=== PATIENT | female | born 1980 | race Caucasian/White ===

== ENCOUNTER 2016-05-31 16:23 | Emergency (ER) | payer OTHER ==
[~2016-05-31] VITALS: Ht 162.6 cm; Wt 64.9 kg
[~2016-05-31 16:23] MED LIST: BIOT1TAB5 PO; CRAN450T3 PO; GLC/500 PO; ZTHM250 PO
[2016-05-31 16:28] VITALS: TEMP 36.4; Ht 162.6 cm; Wt 64.9 kg
[2016-05-31] MEDS ORDERED: SODIUM CHLORIDE 0.9% 1000ML 1,000 ML IV STA (16:45)
[2016-05-31] MEDS ORDERED: ALBUT/IPRATROP 3MG/0.5MG NEB 3 ML VIAL INH STA (16:45)
[2016-05-31] MEDS ORDERED: CHLO1TAB47 PO (17:05)
[2016-05-31] MEDS ORDERED: ASPI325T45 PO (17:05)
[2016-05-31] MEDS ORDERED: FERR325T PO (17:05)
[2016-05-31 17:11] LABS: BASO % 0.9 %; BASO ABS # 0.03 K/uL (0-0.2); EOS % 2.8 %; HEMATOCRIT 32.5 % (37-47); LYMPH % 38.1 %; LYMPH ABS # 1.23 K/uL (1.2-3.4); MEAN CELL VOLUME 65.5 fL (80-100); MEAN CORPUSCULAR HEMOGLOBIN 19.4 pg (25-34); MEAN CORPUSCULAR HGB CONC 29.5 g/dl (32-36); MEAN PLATELET VOLUME 9.3 fL (7.4-10.4); MONO % 9.9 %; NEUT % 48.3 %; PLATELET COUNT 217 K/uL (130-400); RED BLOOD COUNT 4.96 M/uL (4.2-5.4); WHITE BLOOD COUNT 3.23 K/uL (4.8-10.8)
--- NOTE | 2016-05-31 17:30 | DIAGNOSTIC IMAGING REPORT ---
CHEST 2 VIEWS ROUTINE CLINICAL HISTORY: Fever, cough COMPARISON STUDY: 12/30/2015 FINDINGS: The cardiac and mediastinal contours are normal. There is no evidence of focal pulmonary consolidation. There is no evidence of failure. No pleural effusions are visualized.[ IMPRESSION: No active disease in the chest. Electronically signed by: Kyler Basurto M.D. 05/31/2016 5:29 PM Dictated Date/Time: 05/31/2016 5:28 PM
[2016-05-31 17:33] LABS: BUN/CREATININE RATIO 13.8 (10-20); CALCIUM 8.1 mg/dl (8.5-10.1); CREATININE 0.64 mg/dl (0.60-1.20); POTASSIUM 3.4 mmol/L (3.5-5.1)
[2016-05-31 17:43] LABS: ALB/GLOB RATIO 0.8 (0.9-2); THYROID STIMULATING HORMONE 1.72 uIu/ml (0.300-4.500)
[2016-05-31 18:27] LABS: ANISOCYTOSIS PRESENT; COMPLETE YES; LARGE PLATELETS 1+; MICROCYTOSIS PRESENT
[2016-05-31] MEDS ORDERED: ALBUTEROL HFA 8 GM INHALER INH ONE (18:30)
--- NOTE | 2016-05-31 18:37 | EMERGENCY ROOM VISIT NOTE ---
History First contact with patient: 16:32 Chief Complaint: FLU LIKE SX Stated Complaint: FEVER,COUGH History of Present Illness The patient is a 36 year old female who presents to the Emergency Room with complaints of flulike symptoms which began 5 days ago. The patient states that she was seen here 5 days ago with her sons, who were both diagnosed with influenza. She states that later that day, she developed fevers, coughing and body aches. She has had constant symptoms since then. She states that she has allergies to Tylenol and ibuprofen, but has been taking Regina-[place] cold and flu for her symptoms. She states that her fevers have been as high as 102F. She has had associated chills. She has a history of diabetes, Graves' disease and anemia. She denies any associated nausea, vomiting, abdominal pain, neck pain/stiffness, headache, earaches or sore throat. Review of Systems A complete 10-point Review of Systems was discussed with the patient, with pertinent positives and negatives listed in the History of Present Illness. All remaining Review of Systems questions can be considered negative unless otherwise specified. Past Medical/Surgical History Medical Problems: (1) Acute asthma exacerbation (2) Acute bronchitis (3) Acute bronchitis (4) Acute pharyngitis (5) Asthma (6) Borderline Diabetes (7) Bronchitis (8) Dental decay (9) Dentalgia (10) Diab W Oth Spec Manifest, Type Ii Or Unspec Type, Not Uncntr (11) Diabetes mellitus, new onset (12) Hyperglycemia (13) Hyperglycemia (14) Hypertension (15) Medication requested (16) Pharyngitis (17) Pharyngitis (18) Streptococcal tonsillitis (19) Streptococcal tonsillitis (20) Vaginal discharge Surgical Problems: (1) section (2) Tubal Ligation Status Family History Cancer Diabetes mellitus Gallbladder disease Heart disease Hypertension Kidney disease Kidney stones Lung disease Seizures Stroke Social History Smoking Status: Current Every Day Smoker Alcohol Use: occasionally Marital Status: single Housing Status: lives alone Occupation Status: employed Current/Historical Medications Scheduled Ferrous Sulfate (Ferrous Sulfate), 325 MG PO BID Metformin Hcl (Glucophage), 1,000 MG PO BID Scheduled PRN Aspirin (Aspirin), 325 MG PO UD PRN for Pain or Fever Chlorpheniramine-Phenylephrine (Reg[place] Plus Cold), 1 TAB PO UD PRN for Cold Symptoms Allergies Coded Allergies: Acetaminophen (Verified Allergy, Unknown, RASH, 12/30/15) Ibuprofen (Verified Allergy, Unknown, REDNESS, 12/30/15) Morphine (Verified Allergy, Unknown, HIVES, 12/30/15) Naproxen (Unverified Allergy, Unknown, HIVES, 12/30/15) Penicillins (Verified Allergy, Unknown, 12/30/15) Physical Exam Vital Signs Date Time Temp Pulse Resp B/P Pulse Ox O2 Delivery O2 Flow Rate FiO2 05/31/16 18:50 80 18 110/74 98 05/31/16 16:28 36.4 98 100 150/100 20 Room Air Physical Exam VITALS: Vitals are noted on the nurse's note and reviewed by myself. Vital signs stable. GENERAL: This is a 36-year-old female, in no acute distress, nondiaphoretic, well-developed well-nourished. SKIN: Capillary reflex less than 2 seconds. HEENT: Normocephalic. PERRLA. EOMI. Nares patent. Mucous membranes moist. Neck is supple without nuchal rigidity. HEART: Regular rate and rhythm without murmurs gallops or rubs. LUNGS: Clear to auscultation bilaterally without wheezes, rales or rhonchi. No retractions or accessory muscle use. ABDOMEN: Positive bowel sounds x 4. Soft, nontender to palpation. NEURO: Patient was alert and oriented to person place and time. Medical Decision & Procedures ER Provider Diagnostic Interpretation: CHEST 2 VIEWS ROUTINE FINDINGS: The cardiac and mediastinal contours are normal. There is no evidence of focal pulmonary consolidation. There is no evidence of failure. No pleural effusions are visualized.[ IMPRESSION: No active disease in the chest. Laboratory Results 05/31/16 16:55 Red Blood Count 4.96, Mean Corpuscular Volume 65.5, Mean Corpuscular Hemoglobin 19.4, Mean Corpuscular Hemoglobin Concent 29.5, Mean Platelet Volume 9.3, Neutrophils (%) (Auto) 48.3, Lymphocytes (%) (Auto) 38.1, Monocytes (%) (Auto) 9.9, Eosinophils (%) (Auto) 2.8, Basophils (%) (Auto) 0.9, Neutrophils # (Auto) 1.56, Lymphocytes # (Auto) 1.23, Monocytes # (Auto) 0.32, Eosinophils # (Auto) 0.09, Basophils # (Auto) 0.03 05/31/16 16:55 Test 05/31/16 16:55 White Blood Count 3.23 K/uL (4.8-10.8) Red Blood Count 4.96 M/uL (4.2-5.4) Hemoglobin 9.6 g/dL (12.0-16.0) Hematocrit 32.5 % (37-47) Mean Corpuscular Volume 65.5 fL (80-100) Mean Corpuscular Hemoglobin 19.4 pg (25-34) Mean Corpuscular Hemoglobin Concent 29.5 g/dl (32-36) Platelet Count 217 K/uL (130-400) Mean Platelet Volume 9.3 fL (7.4-10.4) Neutrophils (%) (Auto) 48.3 % Lymphocytes (%) (Auto) 38.1 % Monocytes (%) (Auto) 9.9 % Eosinophils (%) (Auto) 2.8 % Basophils (%) (Auto) 0.9 % Neutrophils # (Auto) 1.56 K/uL (1.4-6.5) Lymphocytes # (Auto) 1.23 K/uL (1.2-3.4) Monocytes # (Auto) 0.32 K/uL (0.11-0.59) Eosinophils # (Auto) 0.09 K/uL (0-0.5) Basophils # (Auto) 0.03 K/uL (0-0.2) RDW Standard Deviation 44.9 fL (36.4-46.3) RDW Coefficient of Variation 19.1 % (11.5-14.5) Immature Granulocyte % (Auto) 0.0 % Immature Granulocyte # (Auto) 0.00 K/uL (0.00-0.02) Large Platelets 1+ Anisocytosis PRESENT Microcytosis PRESENT Anion Gap 9.0 mmol/L (3-11) Est Creatinine Clear Calc Drug Dose 106.0 ml/min Estimated GFR () 134.0 Estimated GFR (Non- 115.6 BUN/Creatinine Ratio 13.8 (10-20) Calcium Level 8.1 mg/dl (8.5-10.1) Total Bilirubin 0.2 mg/dl (0.2-1) Aspartate Amino Transf (AST/SGOT) 9 U/L (15-37) Alanine Aminotransferase (ALT/SGPT) 14 U/L (12-78) Alkaline Phosphatase 66 U/L (45-117) Total Protein 7.5 gm/dl (6.4-8.2) Albumin 3.4 gm/dl (3.4-5.0) Globulin 4.1 gm/dl (2.5-4.0) Albumin/Globulin Ratio 0.8 (0.9-2) Thyroid Stimulating Hormone (TSH) 1.720 uIu/ml (0.300-4.500) Free Thyroxine 0.79 ng/dl (0.80-1.60) Free Triiodothyronine 2.41 pg/ml (2.30-4.20) Influenza Type A Antigen Neg for Influ A (NEG) Influenza Type B Antigen POS for Influ B (NEG) Medications Administered Medications (Trade) Dose Ordered Sig/Phil Route Start Time Stop Time Status Last Admin Dose Admin Sodium Chloride (Nss 1000ml) 1,000 ml @ 999 mls/hr Q1H1M STAT IV 05/31/16 16:45 05/31/16 17:45 DC 05/31/16 17:09 999 MLS/HR Albuterol/ Ipratropium (Duoneb) 3 ml NOW STAT INH 05/31/16 16:45 05/31/16 16:48 DC 05/31/16 17:09 3 ML Albuterol (Ventolin Hfa Inhaler) 2 puffs NOW ONCE INH 05/31/16 18:30 05/31/16 18:31 DC 05/31/16 18:45 2 PUFFS Medical Decision Differential diagnosis includes influenza, pneumonia, viral syndrome, among others. The patient was evaluated as above. Labs were drawn and IV access was obtained. Imaging studies were performed and read by radiology as above. The patient was medicated with 1 L normal saline solution and a DuoNeb treatment. The patient was reassessed multiple times during their stay in the emergency department and remained in stable condition. The patient is a 36-year-old female who presents today complaining of flulike symptoms. Labs revealed a positive influenza B. Patient was slightly hypocalcemic and she was informed of this. Patient is moderately anemic, but this appears to be baseline for her. TSH and thyroid studies were normal. Chest x-ray was performed and read by radiology with no acute infiltrates. The patient is not a candidate for Tamiflu. Conservative measures were discussed with the patient. Based on the patient's presentation, lab results, and imaging studies, I feel the patient is stable for outpatient treatment. Discharge instructions were reviewed with the patient. The patient verbalized understanding of my assessment and treatment plan and was discharged home in good condition. Impression Primary Impression: Influenza B Departure Information Dispostion Home / Self-Care Condition GOOD Referrals Gillian Maya M.D. (MEDICAL) (PCP) Patient Instructions My [facility] Additional Instructions You had a positive influenza test today. Your calcium was slightly low. You should increase calcium-containing foods and have this rechecked by your primary care provider. Rest and drink plenty of fluids. Return to the emergency department with any new/concerning symptoms.
[2016-05-31 18:50] VITALS: BP 110/74; PULSE 80; O2SAT 98
== END 2016-05-31 18:52 | disposition home or self-care (01) ==
LOC: C.EDB 16:23 → C.EDC 18:52
DX: J10.1 Influenza due to other identified influenza virus with other respiratory manifestations (principal); E11.9 Type 2 diabetes mellitus without complications; E05.00 Thyrotoxicosis with diffuse goiter without thyrotoxic crisis or storm; J45.909 Unspecified asthma, uncomplicated; I10 Essential (primary) hypertension; Z83.3 Family history of diabetes mellitus; Z80.9 Family history of malignant neoplasm, unspecified; Z82.49 Family history of ischemic heart disease and other diseases of the circulatory system; Z84.1 Family history of disorders of kidney and ureter; Z83.6 Family history of other diseases of the respiratory system; F17.210 Nicotine dependence, cigarettes, uncomplicated; Z79.899 Other long term (current) drug therapy

== ENCOUNTER 2017-05-03 04:32 | Emergency (ER) | payer OTHER ==
[~2017-05-03] VITALS: Ht 162.6 cm; Wt 69.5 kg
[~2017-05-03 04:32] MED LIST changes: +ASPI325T45 PO; -BIOT1TAB5 PO; +CHLO1TAB50 PO; -CRAN450T3 PO; +FERR1TAB62 PO; -ZTHM250 PO
[2017-05-03 04:35] VITALS: TEMP 36.7; Ht 162.6 cm; Wt 69.5 kg
[2017-05-03] MEDS ORDERED: DEXAMETHASONE SOD INJ 4 MG/ML 5 ML VIAL IM STA (04:54)
[2017-05-03] MEDS ORDERED: METH4PAK PO (04:59)
[2017-05-03] MEDS ORDERED: DOXY100C PO (04:59)
--- NOTE | 2017-05-03 05:00 | EMERGENCY ROOM VISIT NOTE ---
History First contact with patient: 04:40 Chief Complaint: SINUS CONGESTION/PRESSURE Stated Complaint: SINUS MACHADO,FEVER Nursing Triage Summary: c/o sinus machado and congestion for several days. states she is allergic to tylenol and motrin. History of Present Illness The patient is a 36 year old female who presents to the Emergency Room with complaints of right-sided facial pain/headache. The patient states that she has had this pain for the past one week. The pain is located under her right eye and above her right eye. She believes that she has had a fever for the past few days because she feels warm, but she has not taken her temperature. She has been using an [id number] nasal spray and taking antihistamines without relief. She states she is allergic to almost all pain medications and therefore has not been taking anything for the pain. She has had a cough and mild congestion. She rates the discomfort a 7/10. She denies neck pain/ stiffness, abdominal pain, nausea or vomiting. Review of Systems A complete 10 point review of systems was reviewed with the patient with pertinent positives and negatives as per history of present illness. All else were negative. Past Medical/Surgical History Medical Problems: (1) Acute asthma exacerbation (2) Acute bronchitis (3) Acute bronchitis (4) Acute pharyngitis (5) Asthma (6) Borderline Diabetes (7) Bronchitis (8) Dental decay (9) Dentalgia (10) Diab W Oth Spec Manifest, Type Ii Or Unspec Type, Not Uncntr (11) Diabetes mellitus, new onset (12) Hyperglycemia (13) Hyperglycemia (14) Hypertension (15) Medication requested (16) Pharyngitis (17) Pharyngitis (18) Streptococcal tonsillitis (19) Streptococcal tonsillitis (20) Vaginal discharge Surgical Problems: (1) section (2) Tubal Ligation Status Family History Cancer Diabetes mellitus Gallbladder disease Heart disease Hypertension Kidney disease Kidney stones Lung disease Seizures Stroke Social History Smoking Status: Current Every Day Smoker Alcohol Use: occasionally Marital Status: single Housing Status: lives alone Occupation Status: employed Current/Historical Medications Scheduled Doxycycline Hyclate (Vibramycin), 100 MG PO BID Ferrous Sulfate (Ferrous Sulfate), 325 MG PO BID Metformin Hcl (Glucophage), 1,000 MG PO BID Methylprednisolone (Medrol Dosepak), 0 PO DAILY Scheduled PRN Aspirin (Aspirin), 325 MG PO UD PRN for Pain or Fever Chlorpheniramine-Phenylephrine (Regina-[place]up[place] Plus Cold), 1 TAB PO UD PRN for Cold Symptoms Physical Exam Vital Signs Date Time Temp Pulse Resp B/P (MAP) Pulse Ox O2 Delivery O2 Flow Rate FiO2 05/03/17 04:35 36.7 80 18 147/103 98 Room Air Physical Exam VITALS: Vitals are noted on the nurse's note and reviewed by myself. Vital signs stable. GENERAL: This is a 36-year-old female, in no acute distress, nondiaphoretic, well-developed well-nourished. SKIN: The skin was without rashes. HEAD: Normocephalic atraumatic. EARS: External auditory canals clear, tympanic membranes pearly escobedo without erythema or effusion bilaterally. EYES: Pupils equal round and reactive to light and accommodation. Extraocular movements intact. NOSE: Patent, turbinates without inflammation or discharge. Tenderness of the right maxillary and frontal sinuses. MOUTH: Mucous membranes moist. Tonsils are not enlarged. Pharynx without erythema or exudate. NECK: Supple without nuchal rigidity. No lymphadenopathy. No meningismus. HEART: Regular rate and rhythm without murmurs gallops or rubs. LUNGS: Clear to auscultation bilaterally without wheezes, rales or rhonchi. No retractions or accessory muscle use. NEURO: Patient was alert and oriented to person place and time. Medical Decision & Procedures Medical Decision Differential diagnosis includes sinusitis, migraine headaches, influenza, viral illness, meningitis, encephalitis, among others. The patient is a 36-year-old female who presents today complaining of right- sided facial pain. Patient states that she has had fevers at home, however she is afebrile on presentation and has not taken any antipyretics at home. Exam is consistent with acute sinusitis. There is no evidence of meningitis or encephalitis on exam. The patient has an allergy to penicillins, therefore she will be placed on doxycycline. She will also be prescribed a Medrol Dosepak. She was given an initial dose of Decadron IM in the emergency department. She will follow-up with her primary care provider. She was advised to return here as needed for any worsening or new/concerning symptoms. She verbalized understanding of my assessment and treatment plan and was discharged home in good condition. Medication Reconcilliation Current Medication List: was personally reviewed by me Blood Pressure Screening Patient's blood pressure: Elevated blood pressure Blood pressure disposition: Elevated BP felt to be situational Impression Primary Impression: Acute sinusitis Departure Information Dispostion Home / Self-Care Condition GOOD Prescriptions Methylprednisolone (MEDROL DOSEPAK) 4 Mg Eleazar 0 PO DAILY, #1 PKT Prov: Ramona Robins PA-C 05/03/17 Doxycycline Hyclate (VIBRAMYCIN) 100 Mg Cap 100 MG PO BID for 10 Days, #20 CAP Prov: Ramona Robins PA-C 05/03/17 Referrals No Doctor, Assigned (PCP) Patient Instructions My [facility] Additional Instructions You were prescribed doxycycline to be taken twice daily as prescribed. This is an antibiotic. All antibiotics have the potential to cause diarrhea. Stop this medication and contact a medical provider if you were to develop any significant adverse side effects including: wheezing, shortness of breath, passing out, vomiting, or a diffuse rash. Always take antibiotics as directed and COMPLETE the ENTIRE course regardless of the improvement of your symptoms. You have been prescribed a Medrol Dosepak. This is a steroid which will help decrease your inflammation, redness, and itch. Take the medicine as prescribed. Take the ENTIRE 6 day course of the steroids. You may use a Flonase nasal spray [id number]. You need to follow-up with your primary care provider within one week for a recheck. Return to the emergency department with any high fevers, pain/stiffness, worsening or new/concerning symptoms. Problem Qualifiers Primary Impression: Acute sinusitis Sinusitis location: unspecified location Recurrence: non-recurrent Qualified Codes: J01.90 - Acute sinusitis, unspecified
[2017-05-03] MEDS ORDERED: DEXAMETHASONE **PF** INJ 10 MG/ML VIAL ONE (05:14)
[2017-05-03] MEDS ORDERED: LEVO25TA5 PO (05:29)
[2017-05-03 05:35] VITALS: BP 145/78; PULSE 82; O2SAT 98
== END 2017-05-03 05:36 | disposition home or self-care (01) ==
LOC: C.EDB 04:33 → C.EDA 05:36
DX: J01.90 Acute sinusitis, unspecified (principal); E11.9 Type 2 diabetes mellitus without complications; I10 Essential (primary) hypertension; F17.200 Nicotine dependence, unspecified, uncomplicated; Z79.84 Long term (current) use of oral hypoglycemic drugs; Z80.9 Family history of malignant neoplasm, unspecified; Z83.3 Family history of diabetes mellitus; Z83.79 Family history of other diseases of the digestive system; Z82.49 Family history of ischemic heart disease and other diseases of the circulatory system; Z84.1 Family history of disorders of kidney and ureter; Z82.0 Family history of epilepsy and other diseases of the nervous system; Z82.3 Family history of stroke

== ENCOUNTER 2017-07-27 15:58 | Emergency (ER) | payer OTHER ==
[~2017-07-27] VITALS: Ht 165.1 cm; Wt 66.1 kg
[~2017-07-27 15:58] MED LIST changes: -ASPI325T45 PO; -CHLO1TAB50 PO; -FERR1TAB62 PO; +LEVO25TA5 PO
[2017-07-27 16:02] VITALS: TEMP 36.6; Ht 165.1 cm; Wt 66.1 kg
[2017-07-27] MEDS ORDERED: SODIUM CHLORIDE 0.9% 1000ML 1,000 ML IV STA (16:16)
[2017-07-27] MEDS ORDERED: ALBUT/IPRATROP 3MG/0.5MG NEB 3 ML VIAL INH STA (16:20)
[2017-07-27] MEDS ORDERED: PHEN95TA14 PO (16:35)
--- NOTE | 2017-07-27 16:39 | DIAGNOSTIC IMAGING REPORT ---
CHEST ONE VIEW PORTABLE HISTORY: Generalized abdominal pain. COMPARISON: Chest 05/31/2016. FINDINGS: The lungs are clear. Cardiac silhouette is normal in size. No pleural effusions. No pneumothorax. IMPRESSION: No acute process. Electronically signed by: Nehemiah Larose M.D. 07/27/2017 4:37 PM Dictated Date/Time: 07/27/2017 4:36 PM
[2017-07-27] MEDS ORDERED: CIPROFLOXACIN 500 MG TAB PO STA (16:51)
[2017-07-27 16:53] LABS: BASO % 1.5 %; BASO ABS # 0.09 K/uL (0-0.2); EOS % 2.4 %; EOS ABS # 0.14 K/uL (0-0.5); HEMATOCRIT 39.4 % (37-47); HEMOGLOBIN 12.7 g/dL (12.0-16.0); IG# 0.01 K/uL (0.00-0.02); LYMPH % 35.7 %; LYMPH ABS # 2.09 K/uL (1.2-3.4); MEAN CELL VOLUME 82.8 fL (80-100); MEAN CORPUSCULAR HEMOGLOBIN 26.7 pg (25-34); MEAN CORPUSCULAR HGB CONC 32.2 g/dl (32-36); MEAN PLATELET VOLUME 10.3 fL (7.4-10.4); MONO % 9.2 %; MONO ABS # 0.54 K/uL (0.11-0.59); NEUT ABS # 2.98 K/uL (1.4-6.5); PLATELET COUNT 309 K/uL (130-400); RED CELL DISTRIBUTION WIDTH CV 14.6 % (11.5-14.5); RED CELL DISTRIBUTION WIDTH SD 44.2 fL (36.4-46.3); WHITE BLOOD COUNT 5.85 K/uL (4.8-10.8)
[2017-07-27 17:13] LABS: ALBUMIN 3.9 gm/dl (3.4-5.0); ALT/SGPT 13 U/L (12-78); AST/SGOT 6 U/L (15-37); BLOOD UREA NITROGEN 9 mg/dl (7-18); CALCIUM 8.7 mg/dl (8.5-10.1); CARBON DIOXIDE 25 mmol/L (21-32); CREATININE 0.65 mg/dl (0.60-1.20); GLUCOSE 121 mg/dl (70-99); LIPASE 45 U/L (73-393); POTASSIUM 3.5 mmol/L (3.5-5.1); SODIUM 140 mmol/L (136-145)
[2017-07-27 17:16] LABS: ALKALINE PHOSPHATASE 67 U/L (45-117); TOTAL PROTEIN 7.9 gm/dl (6.4-8.2)
[2017-07-27] MEDS ORDERED: CIPR-255 PO (17:20)
[2017-07-27 17:40] VITALS: BP 141/90; PULSE 66; O2SAT 98
--- NOTE | 2017-07-27 19:26 | EMERGENCY ROOM VISIT NOTE ---
History Report prepared by Alexis: Laura Malone Under the Supervision of: Dr. Juan Alfaro M.D. First contact with patient: 16:05 Chief Complaint: URINARY SYMPTOMS Stated Complaint: URINARY,PAIN,UTI History of Present Illness The patient is a 37 year old female who presents to the Emergency Room with complaints of urinary symptoms beginning 3 days ago. The patient states that she believes she has a UTI, and states that she has had them before but that her symptoms have never been this bad. The patient also reports having nausea, fatigue, lower back pain, fevers, chills, and diaphoresis. She also reports having spells where she feels like she cannot breath and states that it feels that she is having an asthma attack. 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 She states that she has been taking Azo pills and realized that she needs to see a doctor before taking these pills. She reports a history of hypothyroidism , anemia, and states that she is borderline diabetic. Pt denies LOC, headache, visual changes, neck pain, chest pain, vomiting, abdominal pain, melena, hematochezia, numbness, weakness, lymphadenopathy, rash, or other complaints. Source of History: patient Onset: 3 days ago Quality: other (urinary symptoms ) Timing: constant Associated Symptoms: + fevers, + chills, + diaphoresis, + SOB, + nausea, + back pain (lower ), + fatigue, No chest pain Review of Systems See HPI for pertinent positives and negatives. A total of ten systems were reviewed and were otherwise negative. Past Medical & Surgical Medical Problems: (1) Acute asthma exacerbation (2) Acute bronchitis (3) Acute bronchitis (4) Acute pharyngitis (5) Asthma (6) Borderline Diabetes (7) Bronchitis (8) Dental decay (9) Dentalgia (10) Diab W Oth Spec Manifest, Type Ii Or Unspec Type, Not Uncntr (11) Diabetes mellitus, new onset (12) Hyperglycemia (13) Hyperglycemia (14) Hypertension (15) Hypothyroidism (16) Medication requested (17) Pharyngitis (18) Pharyngitis (19) Streptococcal tonsillitis (20) Streptococcal tonsillitis (21) Vaginal discharge Surgical Problems: (1) section (2) Tubal Ligation Status Family History Cancer Diabetes mellitus Gallbladder disease Heart disease Hypertension Kidney disease Kidney stones Lung disease Seizures Stroke Social History Smoking Status: Current Every Day Smoker Alcohol Use: occasionally Marital Status: single Housing Status: lives with family Occupation Status: employed Current/Historical Medications Scheduled Ciprofloxacin Hcl (Cipro), 500 MG PO BID Phenazopyridine Hcl (Azo Tabs), 285 MG PO BID Allergies Coded Allergies: Acetaminophen (Verified Allergy, Unknown, RASH, 05/03/17) Ibuprofen (Verified Allergy, Unknown, REDNESS, 05/03/17) Morphine (Verified Allergy, Unknown, HIVES, 05/03/17) Naproxen (Unverified Allergy, Unknown, HIVES, 05/03/17) Penicillins (Verified Allergy, Unknown, 05/03/17) Physical Exam Vital Signs Date Time Temp Pulse Resp B/P (MAP) Pulse Ox O2 Delivery O2 Flow Rate FiO2 07/27/17 17:40 66 18 141/90 98 07/27/17 16:02 36.6 92 18 144/97 97 Room Air Physical Exam GENERAL: Awake, alert, tired-appearing, in no distress HENT: Normocephalic, atraumatic. Oropharynx unremarkable. EYES: Normal conjunctiva. Sclera non-icteric. NECK: Supple. No nuchal rigidity. FROM. No masses. RESPIRATORY: Clear to auscultation. No wheezes. No rales. Normal respiratory effort. CARDIAC: Normal rate. Normal rhythm. No murmurs. No rubs. Extremities warm and well perfused. Pulses equal. No JVD. GI: Soft, non-distended. No tenderness to palpation. No rebound or guarding. No masses. RECTAL: Deferred. MUSCULOSKELETAL: Atraumatic. Chest examination reveals no tenderness. The back is symmetrical on inspection without obvious abnormality. There is no CVA tenderness to palpation. No joint edema. LOWER EXTREMITIES: Calves are equal size bilaterally and non-tender. No edema. No discoloration. NEURO: Normal sensorium. No sensory or motor deficits noted. SKIN: No rash or jaundice noted. Medical Decision & Procedures ER Provider Diagnostic Interpretation: Radiology results as stated below per my review and radiologist interpretation: CHEST ONE VIEW PORTABLE HISTORY: Generalized abdominal pain. COMPARISON: Chest 05/31/2016. FINDINGS: The lungs are clear. Cardiac silhouette is normal in size. No pleural effusions. No pneumothorax. IMPRESSION: No acute process. Electronically signed by: Nehemiah Larose M.D. 07/27/2017 4:37 PM Dictated Date/Time: 07/27/2017 4:36 PM Laboratory Results 07/27/17 16:35 Red Blood Count 4.76, Mean Corpuscular Volume 82.8, Mean Corpuscular Hemoglobin 26.7, Mean Corpuscular Hemoglobin Concent 32.2, Mean Platelet Volume 10.3, Neutrophils (%) (Auto) 51.0, Lymphocytes (%) (Auto) 35.7, Monocytes (%) (Auto) 9.2, Eosinophils (%) (Auto) 2.4, Basophils (%) (Auto) 1.5, Neutrophils # (Auto) 2.98, Lymphocytes # (Auto) 2.09, Monocytes # (Auto) 0.54, Eosinophils # (Auto) 0.14, Basophils # (Auto) 0.09 07/27/17 16:35 Test 07/27/17 16:10 07/27/17 16:35 Urine Color DK YELLOW Urine Appearance TURBID (CLEAR) Urine pH 5.0 (4.5-7.5) Urine Specific Dale 1.031 (1.000-1.030) Urine Protein TRACE (NEG) Urine Glucose (UA) NEG (NEG) Urine Ketones NEG (NEG) Urine Occult Blood 3+ (NEG) Urine Nitrite POS (NEG) Urine Bilirubin NEG (NEG) Urine Urobilinogen NEG (NEG) Urine Leukocyte Esterase TRACE (NEG) Urine WBC (Auto) 10-30 /hpf (0-5) Urine RBC (Auto) 5-10 /hpf (0-4) Urine Hyaline Casts (Auto) 5-10 /lpf (0-5) Urine Epithelial Cells (Auto) >30 /lpf (0-5) Urine Bacteria (Auto) 1+ (NEG) Urine Crystals CALCIUM OXALATE (NONE Urine Pathogenic Casts /lpf (0) Urine Yeast (Auto) (NONE PRSENT) Urine Test NEG (NEG) White Blood Count 5.85 K/uL (4.8-10.8) Red Blood Count 4.76 M/uL (4.2-5.4) Hemoglobin 12.7 g/dL (12.0-16.0) Hematocrit 39.4 % (37-47) Mean Corpuscular Volume 82.8 fL (80-100) Mean Corpuscular Hemoglobin 26.7 pg (25-34) Mean Corpuscular Hemoglobin Concent 32.2 g/dl (32-36) Platelet Count 309 K/uL (130-400) Mean Platelet Volume 10.3 fL (7.4-10.4) Neutrophils (%) (Auto) 51.0 % Lymphocytes (%) (Auto) 35.7 % Monocytes (%) (Auto) 9.2 % Eosinophils (%) (Auto) 2.4 % Basophils (%) (Auto) 1.5 % Neutrophils # (Auto) 2.98 K/uL (1.4-6.5) Lymphocytes # (Auto) 2.09 K/uL (1.2-3.4) Monocytes # (Auto) 0.54 K/uL (0.11-0.59) Eosinophils # (Auto) 0.14 K/uL (0-0.5) Basophils # (Auto) 0.09 K/uL (0-0.2) RDW Standard Deviation 44.2 fL (36.4-46.3) RDW Coefficient of Variation 14.6 % (11.5-14.5) Immature Granulocyte % (Auto) 0.2 % Immature Granulocyte # (Auto) 0.01 K/uL (0.00-0.02) Anion Gap 8.0 mmol/L (3-11) Est Creatinine Clear Calc Drug Dose 107.7 ml/min Estimated GFR () 132.4 Estimated GFR (Non- 114.2 BUN/Creatinine Ratio 14.4 (10-20) Calcium Level 8.7 mg/dl (8.5-10.1) Total Bilirubin 0.4 mg/dl (0.2-1) Direct Bilirubin < 0.1 mg/dl (0-0.2) Aspartate Amino Transf (AST/SGOT) 6 U/L (15-37) Alanine Aminotransferase (ALT/SGPT) 13 U/L (12-78) Alkaline Phosphatase 67 U/L (45-117) Total Protein 7.9 gm/dl (6.4-8.2) Albumin 3.9 gm/dl (3.4-5.0) Lipase 45 U/L (73-393) Laboratory results reviewed by me Medications Administered Medications (Trade) Dose Ordered Sig/Phil Route Start Time Stop Time Status Last Admin Dose Admin Sodium Chloride 1,000 ml @ 999 mls/hr Q1H1M STAT IV 07/27/17 16:16 07/27/17 17:16 DC 07/27/17 16:40 999 MLS/HR Albuterol/ Ipratropium (Duoneb) 3 ml NOW STAT INH 07/27/17 16:20 07/27/17 16:22 DC 07/27/17 16:40 3 ML Ciprofloxacin (Cipro Tab) 500 mg NOW STAT PO 07/27/17 16:51 07/27/17 16:53 DC 07/27/17 17:00 500 MG ED Course 1611: The patient was evaluated in room B11B. A complete history and physical exam was performed. 1616: Ordered Sodium Chloride 1,000 ml @ 999 mls/hr IV. 1620: Ordered Duoneb 3 ml INH. 165: Ordered Cipro Tab 500 mg PO. 1652: I checked on the patient and she is doing well. 1727: I reevaluated the patient. Discussed results and discharge instructions: She verbalized understanding and agreement. The patient is ready for discharge. Medical Decision Nursing notes reviewed and agree them. The patient's history was concerning for weakness. Differential diagnosis: Etiologies such as UTI, pyelonephritis, viral syndrome, bronchitis, pneumonia, metabolic, infection, hypo/hyperglycemia, electrolyte abnormalities, cardiac sources, as well as others were entertained. Physical examination: As above. ER treatment provided: IV Lock Normal saline hydration Oral Cipro. DuoNeb On reassessment the patient felt better. Diagnostics interpretation by me: The labs revealed an unremarkable CBC and chemistry panel. Urinalysis concerning for UTI. She is not . Imaging studies: Chest x-ray as above The patient has a urinary tract infection. Blood work was unremarkable. Chest x-ray did not reveal any evidence of pneumonia. She has some mild URI symptoms on top of her UTI. Conservative management was discussed. Cipro will be chosen. First dose was given in the ER. If she worsens in any way she will be back. She will have close follow-up this week with her primary physician. I gave my usual and customary discussion regarding this issue. By the evaluation outlined above other emergent etiologies such as those listed in the differential, as well as others, were deemed relatively unlikely. The patient was educated about the findings as listed above. All questions were answered and the patient was pleased with the treatment. Return instructions were outlined and the patient was discharged in stable condition. The patient was referred to her PCP for follow-up for a recheck of the current condition. Medication Reconcilliation Current Medication List: was personally reviewed by me Blood Pressure Screening Patient's blood pressure: Elevated blood pressure Blood pressure disposition: Referred to PCP Impression Primary Impression: UTI (urinary tract infection) Additional Impression: Malaise Scribe Attestation The scribe's documentation has been prepared under my direction and personally reviewed by me in its entirety. I confirm that the note above accurately reflects all work, treatment, procedures, and medical decision making performed by me. Departure Information Dispostion Home / Self-Care Prescriptions Ciprofloxacin Hcl (CIPRO) 500 Mg Tab 500 MG PO BID, #14 TAB Prov: Juan Alfaro MD 07/27/17 Referrals No Doctor, Assigned (PCP) Gillian Maya M.D. (MEDICAL) Forms HOME CARE DOCUMENTATION FORM, IMPORTANT VISIT INFORMATION Patient Instructions My [facility] Additional Instructions URINARY TRACT INFECTION INSTRUCTIONS: Ciprofloxacin(Cipro) 500mg: Take one pill twice daily for 7 days for your urine infection. All antibiotics can cause diarrhea. If this occurs and you feel worse or it does not resolve in 1-2 days follow up with your doctor or return to the Emergency Department as this could be signs of serious underlying problems. If you experience any pain in your tendons or any tendon injury return to the ER for re-evaluation. Any medication can cause an allergic reaction, stop the pills immediately and return to the ER for rash, hives, breathing difficulties, or swelling. Rest and drink plenty of fluids. Continue current medications. Return to the ER immediately for worsening or persistent abdominal pain, vomiting, fevers, back or flank pain, worsening of your condition, or as needed. Follow up with your primary physician within 2-3 days for a recheck of the current condition. Problem Qualifiers
== END 2017-07-27 17:40 | disposition home or self-care (01) ==
LOC: C.EDB 15:59
DX: N39.0 Urinary tract infection, site not specified (principal); R53.81 Other malaise; F17.210 Nicotine dependence, cigarettes, uncomplicated; Z88.5 Allergy status to narcotic agent; Z88.0 Allergy status to penicillin; Z88.8 Allergy status to other drugs, medicaments and biological substances